=== PATIENT | male | born 1960 | race Caucasian/White ===

== ENCOUNTER 2017-07-08 13:33 | Emergency (ER) | payer OTHER, MEDICARE, SELFPAY ==
[2017-07-08 13:35] VITALS: BP 148/83; PULSE 82; RESP 17; TEMP 36.9; O2SAT 95; BMI 32.9
--- NOTE | 2017-07-08 14:03 | RAD_ITS ---
STUDY: X-RAY - ABDOMEN/PELVIS REASON FOR EXAM: Male, 56 years old. 3 week history of constipation. TECHNIQUE: Two AP supine views of the abdomen and pelvis. COMPARISON: None. FINDINGS: Mild elevation of the right hemidiaphragm. There is an abundance of fecal material throughout the colon. The visualized liver, spleen and kidneys are grossly normal in size and morphology. There are calcified phleboliths in the pelvis. Normal visualized osseous structures. RAD/Abdomen Single View IMPRESSION: A large amount of fecal material is seen in the colon. Electronically Signed: Gurinder Ramirez MD at 15:08 EDT Tel [phone], Service support ,
--- NOTE | 2017-07-08 14:08 | ED.DCSUM_ITS ---
- ER Visit Summary Date of Service: 07/08/17 Chief Complaint: Constipation History of Present Illness: The patient is a 56 M Parkinson's disease with prior appendectomy and hernia repair. Patient states he has had limited bowel movement for 3 days. He has had a history of this in the past. He has been having problems with having bowel movements the last 3's. He has had mild abdominal discomfort. No diarrhea. No melena. No dysuria. No nausea or vomiting. Physical Examination: Well-appearing middle-age male. Vital signs are stable afebrile. He does not look septic or toxic. HEENT exam moist mucous membranes. Neck nontender no lymphadenopathy. Lungs good auscultation bilaterally. Heart regular rate and rhythm no murmur. Abdomen is soft nondistended normal bowel sounds no peritoneal signs. Minimal right-sided tenderness. No McBurney's point tenderness. No [place] sign. No hernias or masses. He does have bowel sounds his abdomen is soft clinically this does not appear to be a bowel obstruction. He is moving all 4 extremities. He does have Parkinson's tremors in both the upper and lower extremities. Back exam unremarkable. Neurologically awake alert no focal motor deficits he does have the Parkinson's tremors as previously stated. Test Results: KUB shows stool in the right colon and rectum. No signs of obstruction. No air-fluid levels. X-ray consistent with constipation. Emergency Department Course and Treatment: Repeat exam the patient is doing well. At 1555. Abdomen is benign without peritoneal signs. He is resting comfortably. I went over the x-ray results of both he and his . They will be discharged home with magnesium citrate to treat his constipation. They know to return if he is doing worse instead of improving. Treatment Plan: [] Disposition: Discharge Impression: Acute constipation This note was generated with [employer] dictation software. It may contain incorrect words, spelling, and punctuation that were not noted in review of the chart prior to signing ED Disposition - Plan for ED Patient: Chief Complaint: Constipation Referrals: [facility] Doctor,Out of [NON-STAFF] -
--- NOTE | 2017-07-08 14:09 | NURSING ---
NO LW OR POA
[2017-07-08 15:33] VITALS: BP 161/102; PULSE 75; RESP 20; O2SAT 95
--- NOTE | 2017-07-08 15:57 | ED.DEP ---
ED Disposition - Plan for ED Patient: Disposition: Home or Assisted Living Chief Complaint: Constipation Instructions: ED Constipation Referrals: [facility],Out of [NON-STAFF] - 3-5 Days if not improving Additional Instructions: Magnesium citrate for the constipation. Drink one whole bottle should have a bowel movement in 1-4 hours if do not you may use a second bottle. Plenty fluids, fruits and vegetables and fiber. Return if feeling worse or increasing abdominal pain or vomiting. You will have some cramping with the magnesium citrate.
[2017-07-08] MEDS: Magnesium Citrate 300 ML PO (16:06)
[2017-07-08 16:07] VITALS: BP 137/83; PULSE 82; RESP 16; O2SAT 99
== END 2017-07-08 16:08 | disposition home or self-care (01) ==
PROVIDERS: Emergency Provider Emergency Medicine
DX: K59.00 Constipation, unspecified (principal); Z79.899 Other long term (current) drug therapy; G20 Parkinson's disease
CPT/HCPCS: 74018; 99282